=== PATIENT | female | born 1955 | race Caucasian/White ===

== ENCOUNTER 2020-03-31 07:53 | Outpatient (CLI) | payer MEDICARE, SELFPAY ==
[2020-03-31 08:26] LABS: Alanine Aminotransferase 33 U/L (4-35); Albumin Level 4.5 g/dL (3.5-5.1); Alkaline Phosphatase 84 U/L (38-126); Aspartate Amino Transferase 33 U/L (14-36); Bilirubin,Total 0.4 mg/dL (0.2-1.3); Blood Urea Nitrogen 19 mg/dL (7-17); Calcium 9.5 mg/dL (8.4-10.2); Carbon Dioxide 30 mmol/L (22-30); Chloride 103 mmol/L (98-107); Cholesterol 166 mg/dL (0-200); Estimated Glomerular Filt Rate > 60; Glucose 102 mg/dL (65-105); HDL Direct 51 mg/dL; Potassium 4.1 mmol/L (3.4-5.0); Sodium 138 mmol/L (137-145); Triglycerides 150 mg/dL (<150)
[2020-03-31 08:37] LABS: LDL Cholesterol Direct 88 mg/dL
== END 2020-03-31 07:54 | disposition home or self-care (01) ==
PROVIDERS: PCP Internal Medicine; Visit Provider Nurse Practitioner
DX: E78.49 Other hyperlipidemia (principal)
CPT/HCPCS: 36415; 80053; 80061

== ENCOUNTER 2020-11-21 07:46 | Outpatient (CLI) | payer MEDICARE, SELFPAY ==
--- NOTE | ~2020-11-21 | MM_ITS ---
EXAMINATION: MM screening [facility] BI w chema HISTORY: Screening TECHNIQUE: Craniocaudal and mediolateral oblique 3-D tomosynthesis images were obtained and synthetic 2-D images were generated. CAD analysis was submitted and interpreted. COMPARISON: 03/06/2018 BREAST PARENCHYMAL COMPOSITION: There are scattered areas of fibroglandular density. FINDINGS: There is no evidence of suspicious mass, calcification, or architectural distortion to sugg est malignancy in either breast. There has been no suspicious interval change. IMPRESSION: 1. No mammographic evidence of malignancy. 2. Recommend routine screening mammography in one year. BI-RADS Category 1: Negative Reviewed, dictated and finalized at location A. [facility] ATTENDANT
--- NOTE | ~2020-11-21 | DEXA_ITS ---
Bone Density Report Name: Skyla Freed Age: 65 Sex: Female Ethnicity: White Date of : 1955 Indication: osteopenia; parental hip fracture; postmenopausal Referring Provider: LUCILA JONES Study: Bone densitometry was performed. Exam Date: November 21, 2020 Accession number: [id number] Bone Density: Region BMD T-score Z-score Classification AP Spine (L1-L4) 0.900 -1.3 0.3 Osteopenia Femoral Neck (Left) 0.586 -2.4 -1.0 Osteopenia Total Hip (Left) 0.686 -2.1 -1.0 Osteopenia Total Hip Bilateral Avg 0.724 -1.8 -0.7 Osteopenia Femoral Neck (Right) 0.595 -2.3 -0.9 Osteopenia Total Hip (Right) 0.761 -1.5 -0.4 Osteopenia World Health Organization criteria for BMD impression classify patients as: Normal (T-score at or above -1.0), Osteopenia (T-score between -1.0 and -2.5), or Osteoporosis (T-score at or below -2.5). 10-year Fracture Risk(1): Major Osteoporotic Fracture 20% Hip Fracture 1.9% Reported Risk Factors: [place] (), Neck BMD=0.586, BMI=34.3, parental fracture (1) FRAX(R) Version 3.08. Fracture probability calculated for an untreated patient. Fracture probability may be lower if the patient has received treatment. Previous Exams: Region Exam Age BMD T-score BMD Change BMD Change Date g/cm2 vs Baseline vs Previous AP Spine(L1-L4) 11/21/2020 65 0.900 -1.3 -0.029(-3.1%)* -0.029(-3.1%)* 03/06/2018 62 0.929 -1.1 Total Hip(Left) 11/21/2020 65 0.686 -2.1 -0.007(-1.1%) -0.007(-1.1%) 03/06/2018 62 0.693 -2.0 Total Hip(Right) 11/21/2020 65 0.761 -1.5 0.017(2.3%) 0.017(2.3%) 03/06/2018 62 0.744 -1.6 *Denotes significance at 95% confidence level, LSC for AP Spine = 0.022 g/cm2, LSC for Total Hip = 0.027 g/cm2 Clinical Information Provided by Patient: Parent has had a hip fracture Patient maximum height was 64 Menopause Age: 41 No regular weight bearing exercise Drinks caffeinated beverages Onset of menses at age 11 Number of children 2 Impression: The patient has low bone mass, based on the Left Femoral Neck T-score. The patient has an estimated ten-year risk of hip fracture of 1.9% and an estimated ten-year risk of major fracture of 20%, based on the WHO FRAX algorithm. The patient has risk factors, including: parental hip fracture. The BMD for the AP Spine(L1-L4) decreased, changing by -3.1% since the last DXA exam. Discussion: BONE DENSITY IS LOW AT ONE OR MORE SKELETAL SITES. THE PATIEN
== END 2020-11-21 07:47 | disposition home or self-care (01) ==
LOC: ANHIMG 07:48
PROVIDERS: PCP Internal Medicine; Visit Provider Nurse Practitioner
DX: Z12.31 Encounter for screening mammogram for malignant neoplasm of breast (principal); Z78.0 Asymptomatic menopausal state; M85.88 Other specified disorders of bone density and structure, other site; M85.852 Other specified disorders of bone density and structure, left thigh; M85.851 Other specified disorders of bone density and structure, right thigh
CPT/HCPCS: 77063; 77067; 77080

== ENCOUNTER → 2020-12-20 03:15 | Outpatient (CLI) | payer MEDICARE, SELFPAY ==
[2020-12-20 20:35] LABS: SARS-CoV-2 RNA PCR Negative
== END ==
PROVIDERS: PCP Internal Medicine; Visit Provider Internal Medicine Gastroenterology
DX: Z01.812 Encounter for preprocedural laboratory examination (principal); Z20.822 Contact with and (suspected) exposure to COVID-19
CPT/HCPCS: C9803; U0003; U0005

== ENCOUNTER 2020-12-23 00:48 | Day surgery (SDC) | payer MEDICARE, SELFPAY ==
[2020-12-09 11:32] VITALS: BMI 34.0
--- NOTE | 2020-12-22 09:39 | WPDANESEPPF ---
Anes - Initial Pre Proc Eval Procedure: Operation Date: 12/23/20 08:00 Proposed Procedures p Screening Colonoscopy - Palomo Garcia MD Date/Time: 12/22/20 09:39 Surgeon: Palomo Garcia MD Pre Op Diagnosis: hx of Colon polyps Patient Data Age: 65 Gender: F Height: 1.63 m Weight: 90 kg Allergies Allergy/AdvReac Type Severity Reaction Status Date / Time No Known Allergies Allergy Verified 12/23/20 06:37 Home Medications Medication Instructions Recorded Confirmed Type rosuvastatin 20 mg tablet 20 mg PO DAILY #90 tablet 08/29/20 12/09/20 Rx aspirin 81 mg PO DAILY 12/09/20 12/09/20 History valsartan 320 0.5 tablet PO DAILY #45 tablet 12/21/20 12/23/20 Rx mg-hydrochlorothiazide 25 mg tablet Patient hx anesthesia problems: none Family hx anesthesia problems: none PMFSH Past Medical History Medical History (Updated 12/22/20 @ 09:40 by Jorge Langley DO) Body mass index (bmi) 33.0-33.9, adult Cerebrovascular accident (CVA) with right hemiparesis Colonoscopy causing post-procedural bleeding Deficient knowledge of caesarean delivery Ear drainage right Essential (primary) hypertension Inclusion cyst Mixed hyperlipidemia Neck abrasion Nicotine dependence Sinusitis Weight gain Surgical History Surgical History (Updated 09/16/19 @ 16:21 by Janey Alberts CMA) Hx of colonoscopy with polypectomy Family History Family History Mother Depression Patient's mother is in good health Family history of alcoholism Father Patient's father is in good health Sibling Patient's brother is in good health Social History Social History Smoking packs per day: 2 Smoking cigarettes per day: 40.0 Years smoked: 25 Smoking pack-years: 50.00 Smoking status: Former smoker Tobacco type: cigarettes Second hand tobacco smoke exposure: No Alcohol intake: current Drinks per week: 5 Substance use: former Substance use type: does not use Living arrangements: with family Spiritual care concerns: No Anes - Eval Final PreProcedure Day of Procedure 12/22/20 09:39 Patient weight: obese Heart: regular rate and rhythm Lungs: clear to auscultation and normal air movement Airway: Mallampati scale class III Neurological: alert and oriented Last oral intake: >/= 8 hours ASA classification: III Emergent: no Anesthetic plan: proceed Anesthesia type and monitoring: general GIVS and standard monitoring Informed Consent: The patient's anesthetic plan and its attendant risks and benefits were discussed with the patient/family/POA. Questions were solicited and answers provided to the satisfaction of the patient/family/POA.
[2020-12-23 06:40] VITALS: BP 119/76; PULSE 92; RESP 18; TEMP 37.1; O2SAT 97
[2020-12-23] MEDS: LACTATED RINGERS 1,000 ML 150 ML IV CONT (06:43)
--- NOTE | 2020-12-23 08:01 | PM.HPGS ---
History of Present Illness History of Present Illness Consent: Risks, benefits, and alternatives have been discussed and questions answered. Patient agrees to proceed with procedure. Chief complaint: hx of Colon polyps Narrative: Skyla Vee is a 65 year old female with large polyps removed in 2019, here to reassess Review of Systems Constitutional: Constitutional: Denies headache(s) and Denies weakness Eyes: Eyes: Denies blurry vision ENT: Reports Normal hearing present, Denies headache(s) and Denies neck pain Cardiovascular: Cardiovascular: Denies chest pain and Denies dyspnea Respiratory: Respiratory: Denies dyspnea Gastrointestinal: Gastrointestinal: Reports no additional gastrointestinal complaints Genitourinary: Genitourinary: Denies dysuria Musculoskeletal: Musculoskeletal: Denies neck pain Integumentary/Breasts: Skin/Breast: Denies dry skin Neurologic: Reports Normal hearing present, Denies headache(s) and Denies weakness Psychiatric: Psychiatric: Denies anxiety Endocrine: Endocrine: Denies change in body appearance Hematologic/Lymphatic: Hematologic/Lymphatic: Denies easy bleeding Allergic/Immunologic: Allergic/Immunologic: Denies urticaria PMFSH Past Medical History Medical History (Updated 12/23/20 @ 08:02 by Palomo Garcia MD) Adenomatous colon polyp Body mass index (bmi) 33.0-33.9, adult Cerebrovascular accident (CVA) with right hemiparesis Colonoscopy causing post-procedural bleeding Deficient knowledge of caesarean delivery Ear drainage right Essential (primary) hypertension Inclusion cyst Mixed hyperlipidemia Neck abrasion Nicotine dependence Sinusitis Weight gain Surgical History Surgical History (Updated 09/16/19 @ 16:21 by Janey Alberts CMA) Hx of colonoscopy with polypectomy Family History Family History Mother Depression Patient's mother is in good health Family history of alcoholism Father Patient's father is in good health Sibling Patient's brother is in good health Social History Social History Smoking packs per day: 2 Smoking cigarettes per day: 40.0 Years smoked: 25 Smoking pack-years: 50.00 Smoking status: Former smoker Tobacco type: cigarettes Second hand tobacco smoke exposure: No Alcohol intake: current Drinks per week: 5 Substance use: former Substance use type: does not use Living arrangements: with family Spiritual care concerns: No Meds Home Medications and Allergies Home Medications Medication Instructions Recorded Confirmed Type rosuvastatin 20 mg tablet 20 mg PO DAILY #90 tablet 08/29/20 12/09/20 Rx aspirin 81 mg PO DAILY 12/09/20 12/09/20 History valsartan 320 0.5 tablet PO DAILY #45 tablet 12/21/20 12/23/20 Rx mg-hydrochlorothiazide 25 mg tablet Allergies Allergy/AdvReac Type Severity Reaction Status Date / Time No Known Allergies Allergy Verified 12/23/20 06:37 Vital Signs Vital Signs - 24 hr 12/23/20 06:40 Temperature 98.7 F Pulse Rate 92 Respiratory Rate 18 Blood Pressure 119/76 Pulse Oximetry 97 Exam Const: General: comfortable and no acute distress HENMT: General nose exam: Normal nares present Eyes: General: appearance normal, both eyes and all related structures Neck: Neck: no JVD Resp: Auscultation: clear to auscultation bilaterally Cardio: Rate: regular rate Rhythm: regular rhythm GI: Inspection: non-distended GI Palp: Yes Soft to palpation Skin: General skin exam: normal color Neuro: General: gait normal Speech: normal speech Extrem: General: normal to inspection Psych: Mental Status: mental status grossly normal Assessment and Plan Assessment and plan (1) Adenomatous colon polyp: Code(s): D12.6 - Benign neoplasm of colon, unspecified Status: Acute Assessment and Plan: proc
[2020-12-23 08:32] VITALS: BP 124/62; PULSE 70; RESP 26; O2SAT 98
[2020-12-23 08:42] VITALS: BP 116/66; PULSE 63; RESP 21; O2SAT 98
[2020-12-23 08:52] VITALS: BP 114/72; PULSE 60; RESP 20; O2SAT 98
== END 2020-12-23 08:55 | disposition home or self-care (01) ==
PROVIDERS: PCP Internal Medicine; Visit Provider Internal Medicine Gastroenterology
PROC: 0DJD8ZZ Inspection of Lower Intestinal Tract, Via Natural or Artificial Opening Endoscopic (ICD-10-PCS; CPT 45378; principal; 2020-12-23 08:00)
DX: Z12.11 Encounter for screening for malignant neoplasm of colon (principal); Z86.010 Personal history of colon polyps; K63.5 Polyp of colon; Z79.82 Long term (current) use of aspirin; I69.851 Hemiplegia and hemiparesis following other cerebrovascular disease affecting right dominant side; I10 Essential (primary) hypertension; E78.2 Mixed hyperlipidemia; E66.8 Other obesity; Z68.34 Body mass index [BMI] 34.0-34.9, adult; Z87.891 Personal history of nicotine dependence; K57.30 Diverticulosis of large intestine without perforation or abscess without bleeding
CPT/HCPCS: 45381; 45385; 88305; C9803; J2001; J2704; J7120; U0003; U0005

== ENCOUNTER 2021-04-12 11:08 | Outpatient (CLI) | payer MEDICARE, SELFPAY ==
[2021-04-12 12:18] LABS: Alanine Aminotransferase 30 U/L (4-35); Albumin Level 4.7 g/dL (3.5-5.1); Alkaline Phosphatase 75 U/L (38-126); Anion Gap 9 mmol/L (8-16); Aspartate Amino Transferase 32 U/L (14-36); Bilirubin,Total 0.3 mg/dL (0.2-1.3); Blood Urea Nitrogen 18 mg/dL (7-17); Calcium 10.2 mg/dL (8.4-10.2); Carbon Dioxide 28 mmol/L (22-30); Chloride 103 mmol/L (98-107); Cholesterol 171 mg/dL (0-200); Estimated Glomerular Filt Rate > 60; Glucose 100 mg/dL (65-105); HDL Direct 51 mg/dL; Sodium 140 mmol/L (137-145); Triglycerides 163 mg/dL (<150)
[2021-04-12 12:29] LABS: LDL Cholesterol Direct 75 mg/dL
== END 2021-04-12 11:09 | disposition home or self-care (01) ==
PROVIDERS: PCP Internal Medicine; Visit Provider Nurse Practitioner
DX: E78.2 Mixed hyperlipidemia (principal); Z68.33 Body mass index [BMI] 33.0-33.9, adult
CPT/HCPCS: 36415; 80053; 80061; 84443

== ENCOUNTER 2022-01-08 08:55 | Outpatient (CLI) | payer MEDICARE, SELFPAY ==
--- NOTE | ~2022-01-08 | CT_ITS ---
EXAMINATION: CT lung screening DATE: 01/08/2022 09:34 INDICATION: Personal history of tobacco dependence TECHNIQUE: Computed tomography (CT) of the chest was performed without intravenous contrast. The dose -length product was 135.63 mGy-cm. Automated exposure control and iterative reconstruction technique were employed. COMPARISON: CT dated 01/21/2017 FINDINGS: No thoracic lymphadenopathy. There is atherosclerosis of the aorta and coronary arteries. N o significant pleural or pericardial effusion. Heart size normal. The upper abdomen is unremarkable. There is moderate emphysema. There is a 3 mm nodule of the minor fissure. Stable 3 mm right upper lob e nodule. Stable 3-4 mm left lower lobe nodule. No new pulmonary nodules or masses. Mild thoracic spo ndylosis. Partially visualized lower cervical fusion noted. IMPRESSION: 1. Lung-RADS category 2: Benign appearance or behavior. Continue annual screening with noncontrast lo w-dose chest CT in 12 months. Reviewed, dictated and finalized at location B. IMPRESSION: 1. Lung-RADS category 2: Benign appearance or behavior. Continue annual screeni ng with noncontrast low-dose chest CT in 12 months.
== END 2022-01-08 08:56 | disposition home or self-care (01) ==
PROVIDERS: PCP Internal Medicine; Visit Provider Internal Medicine
DX: Z87.891 Personal history of nicotine dependence (principal)
CPT/HCPCS: 71271

== ENCOUNTER 2022-01-31 00:40 | Day surgery (SDC) | payer MEDICARE, SELFPAY ==
[2022-01-24 14:21] VITALS: BMI 34.4
[2022-01-31 07:35] VITALS: BP 106/67; PULSE 97; RESP 18; TEMP 38.5; O2SAT 98; BMI 34.4
--- NOTE | 2022-01-31 07:58 | WPDANESEPPF ---
Anes - Initial Pre Proc Eval Procedure: Operation Date: 01/31/22 09:00 Proposed Procedures p Screening Colonoscopy - Jake Schmitt MD Date/Time: 01/31/22 07:58 Surgeon: Jake Schmitt MD Pre Op Diagnosis: hx of colon polyps Patient Data Age: 66 Gender: F Height: 1.63 m Weight: 91.2 kg Last Vital Signs Temp 38.5 C H 01/31/22 07:35 Pulse 97 01/31/22 07:35 Resp 18 01/31/22 07:35 BP 106/67 01/31/22 07:35 Pulse Ox 98 01/31/22 07:35 Allergies Allergy/AdvReac Type Severity Reaction Status Date / Time No Known Allergies Allergy Verified 01/31/22 07:43 Home Medications Medication Instructions Recorded Confirmed Type aspirin 81 mg PO DAILY 12/09/20 01/31/22 History rosuvastatin 20 mg tablet 20 mg PO DAILY #90 tablet 07/05/21 01/31/22 Rx valsartan 320 0.5 tablet PO DAILY #45 tablet 11/03/21 01/31/22 Rx mg-hydrochlorothiazide 25 mg tablet [id number]-[id number]-czjh-lutein 1 tablet PO DAILY 01/24/22 01/31/22 History [Centrum Silver Ultra Women's] Patient hx anesthesia problems: none Family hx anesthesia problems: none Results Review: All pre-operative results and documents have been reviewed as part of the pre-operative evaluation. [facility] Past Medical History Medical History Adenomatous colon polyp Body mass index (bmi) 33.0-33.9, adult Cerebrovascular accident (CVA) with right hemiparesis Colonoscopy causing post-procedural bleeding Deficient knowledge of caesarean delivery Ear drainage right Essential (primary) hypertension Hypertension Inclusion cyst Mixed hyperlipidemia Neck abrasion Nicotine dependence Sinusitis Weight gain Surgical History Surgical History Hx of colonoscopy with polypectomy Family History Family History Mother Depression Patient's mother is in good health Family history of alcoholism Father Patient's father is in good health Sibling Patient's brother is in good health Social History Social History Smoking packs per day: 1.5 Smoking cigarettes per day: 30.0 Years smoked: 25 Smoking pack-years: 37.50 Smoking status: Former smoker Tobacco type: cigarettes Second hand tobacco smoke exposure: No Smoking end date: 11/05/13 Alcohol intake: current Drinks per week: 2 Alcohol use details: WINE Substance use: never Substance use type: does not use Living arrangements: with family Spiritual care concerns: No Anes - Eval Final PreProcedure Day of Procedure 01/31/22 07:58 Patient weight: obese Heart: regular rate and rhythm Lungs: decreased breath sounds Airway: Mallampati scale class II Neurological: alert and oriented Last oral intake: >/= 8 hours ASA classification: III Emergent: no Anesthetic plan: proceed Anesthesia type and monitoring: general GIVS and standard monitoring Results Review: All pre-operative results and documents have been reviewed as part of the pre-operative evaluation. Informed Consent: The patient's anesthetic plan and its attendant risks and benefits were discussed with the patient/family/POA. Questions were solicited and answers provided to the satisfaction of the patient/family/POA.
[2022-01-31] MEDS: LACTATED RINGERS 1,000 ML 150 ML IV CONT (08:00)
--- NOTE | 2022-01-31 08:19 | PM.HPGS ---
History of Present Illness History of Present Illness Consent: Risks, benefits, and alternatives have been discussed and questions answered. Patient agrees to proceed with procedure. Chief complaint: hx of colon polyps Narrative: Skyla Vee is a 66 year old female With here for colon cancer screening. She has had polyps removed in the past. In fact she had a sessile polyp removed 3 years ago in the ascending colon. A repeat examination a year ago, she was found to have recurrence at the site of that prior polypectomy, adjacent to the tattoo. That polyp was removed piecemeal, is consequently she needs to return for follow-up at this time Review of Systems Review of Systems: All systems reviewed & are unremarkable except as noted in HPI and below PMFSH Past Medical History Medical History Adenomatous colon polyp Body mass index (bmi) 33.0-33.9, adult Cerebrovascular accident (CVA) with right hemiparesis Colonoscopy causing post-procedural bleeding Deficient knowledge of caesarean delivery Ear drainage right Essential (primary) hypertension Hypertension Inclusion cyst Mixed hyperlipidemia Neck abrasion Nicotine dependence Sinusitis Weight gain Surgical History Surgical History Hx of colonoscopy with polypectomy Family History Family History Mother Depression Patient's mother is in good health Family history of alcoholism Father Patient's father is in good health Sibling Patient's brother is in good health Social History Social History Smoking packs per day: 1.5 Smoking cigarettes per day: 30.0 Years smoked: 25 Smoking pack-years: 37.50 Smoking status: Former smoker Tobacco type: cigarettes Second hand tobacco smoke exposure: No Smoking end date: 11/05/13 Alcohol intake: current Drinks per week: 2 Alcohol use details: WINE Substance use: never Substance use type: does not use Living arrangements: with family Spiritual care concerns: No Meds Home Medications and Allergies Home Medications Medication Instructions Recorded Confirmed Type aspirin 81 mg PO DAILY 12/09/20 01/31/22 History rosuvastatin 20 mg tablet 20 mg PO DAILY #90 tablet 07/05/21 01/31/22 Rx valsartan 320 0.5 tablet PO DAILY #45 tablet 11/03/21 01/31/22 Rx mg-hydrochlorothiazide 25 mg tablet ubmumvqm-mthohtb-sbrk-lutein 1 tablet PO DAILY 01/24/22 01/31/22 History [Centrum Silver Ultra Women's] Allergies Allergy/AdvReac Type Severity Reaction Status Date / Time No Known Allergies Allergy Verified 01/31/22 07:43 Vital Signs Vital Signs - 24 hr 01/31/22 07:35 Temperature 38.5 C H Pulse Rate 97 Respiratory Rate 18 Blood Pressure 106/67 Pulse Oximetry 98 Exam Resp: Auscultation: clear to auscultation bilaterally Cardio: Rate: regular rate Rhythm: regular rhythm GI: GI Palp: Yes Soft to palpation and No Tenderness to palpation present (GI) Assessment and Plan Assessment and plan (1) Colon cancer screening: Code(s): Z12.11 - Encounter for screening for malignant neoplasm of colon Status: Acute Assessment and Plan: Colonoscopy with possible biopsy or polypectomy or cautery or injection of substances. (2) Adenomatous colon polyp: Code(s): D12.6 - Benign neoplasm of colon, unspecified Status: Acute
--- NOTE | 2022-01-31 08:33 | SUR.PREOP ---
PT'S TEMP IS 101.3 IN PRE-OP. ASYMPTOMATIC. PT STATES SHE FEELS FINE. DR. HOUSER AND DR. PENA AWARE.
[2022-01-31 09:11] VITALS: BP 117/77; PULSE 81; RESP 18; O2SAT 94
[2022-01-31 09:21] VITALS: BP 102/77; PULSE 74; RESP 18; O2SAT 93
[2022-01-31 09:31] VITALS: BP 125/70; PULSE 73; RESP 20; O2SAT 98
== END 2022-01-31 09:36 | disposition home or self-care (01) ==
PROVIDERS: PCP Internal Medicine; Visit Provider Internal Medicine Gastroenterology
PROC: 0DJD8ZZ Inspection of Lower Intestinal Tract, Via Natural or Artificial Opening Endoscopic (ICD-10-PCS; CPT 45378; principal; 2022-01-31 09:00)
DX: Z12.11 Encounter for screening for malignant neoplasm of colon (principal); K62.1 Rectal polyp; K57.30 Diverticulosis of large intestine without perforation or abscess without bleeding; I69.351 Hemiplegia and hemiparesis following cerebral infarction affecting right dominant side; I10 Essential (primary) hypertension; E78.2 Mixed hyperlipidemia; Z87.891 Personal history of nicotine dependence
CPT/HCPCS: 45380; 88305; J2704; J7120

== ENCOUNTER 2023-01-09 09:24 | Outpatient (CLI) | payer MEDICARE, OTHER, SELFPAY ==
[2023-01-09 10:54] LABS: Alanine Aminotransferase 38 U/L (6-35); Albumin Level 4.6 g/dL (3.5-5.1); Alkaline Phosphatase 86 U/L (38-126); Anion Gap 6 mmol/L (8-16); Aspartate Amino Transferase 36 U/L (14-36); Bilirubin,Total 0.5 mg/dL (0.2-1.3); Blood Urea Nitrogen 16 mg/dL (7-17); Calcium 9.3 mg/dL (8.4-10.2); Carbon Dioxide 28 mmol/L (22-30); Chloride 104 mmol/L (98-107); Cholesterol 141 mg/dL (0-200); Estimated Glomerular Filt Rate > 60; Glucose 95 mg/dL (65-110); HDL Direct 44 mg/dL; Potassium 3.9 mmol/L (3.4-5.0); Sodium 138 mmol/L (137-145); Triglycerides 100 mg/dL (<150)
[2023-01-09 11:05] LABS: LDL Cholesterol Direct 65 mg/dL
== END 2023-01-09 09:25 | disposition home or self-care (01) ==
LOC: ANHLAB 09:27
PROVIDERS: PCP Internal Medicine; Visit Provider Nurse Practitioner Family
DX: E78.2 Mixed hyperlipidemia (principal); R53.83 Other fatigue; I10 Essential (primary) hypertension
CPT/HCPCS: 36415; 80053; 80061; 84443

== ENCOUNTER 2023-01-10 11:05 | Outpatient (CLI) | payer MEDICARE, OTHER, SELFPAY ==
--- NOTE | ~2023-01-10 | CT_ITS ---
EXAMINATION: CT cervical spine wo con DATE: 01/10/2023 11:28 INDICATION: Neck pain and prior neck surgery TECHNIQUE: Computed tomography (CT) of the cervical spine was performed without intravenous contrast. Automated exposure control and iterative reconstruction technique were employed. The dose-length pro duct was 499.74 mGy-cm. COMPARISON: None FINDINGS: Straightening of the normal cervical lordosis. C5-C7 anterior spinal fusion with anterior plate and s crew fixation. There is solid osseous bridging across entire C5-C6 disc space and less advanced fusio n beginning at the anterior aspect of the C6-C7 disc space. Unfused vertebral body heights are normal . Moderate disc height loss at C4-C5 and mild disc height loss at C7-T1 through T2-T3. Cervical soft tissues are unremarkable. Moderate emphysema. The following disc levels are specifically discussed: C2-C3: There is no uncovertebral joint osteoarthritis. There is mild left and severe right facet join t osteoarthritis. There is no neural foraminal stenosis. There is no central canal stenosis. C3-C4: There is mild bilateral uncovertebral joint osteoarthritis. There is mild right and moderate l eft facet joint osteoarthritis. There is minimal left neural foraminal stenosis. There is no central canal stenosis. C4-C5: Small posterior disc osteophyte complex. There is severe bilateral uncovertebral joint osteoar thritis. There is mild right and moderate left facet joint osteoarthritis. There is mild bilateral ne ural foraminal stenosis. There is mild central canal stenosis. C5-C6: Small osteophytes at the posterior and posterolateral margins of the fused disc space. There i s mild right and moderate left facet joint osteoarthritis with developing fusion across the left face t joint. There is mild bilateral neural foraminal stenosis. There is mild central canal stenosis. C6-C7: Small osteophytes along the posterior and posterolateral margins of the fusing disc space. The re is mild bilateral facet joint osteoarthritis. There is mild bilateral neural foraminal stenosis. T here is no central canal stenosis. C7-T1: There is mild bilateral uncovertebral joint osteoarthritis. There is moderate right and severe left facet joint osteoarthritis. There is mild left neural foraminal stenosis. There is no central c anal stenosis. IMPRESSION: 1. Moderate cervical spondylosis with instrumented C5-C7 anterior spinal fusion. 2. Moderate emphysema. Reviewed, dictated and finalized at location L. IMPRESSION: 1. Moderate cervical spondylosis with instrumented C5-C7 anterior spinal fusion . 2. Moderate emphysema.
== END 2023-01-10 11:06 | disposition home or self-care (01) ==
PROVIDERS: PCP Internal Medicine; Visit Provider Internal Medicine
DX: M47.892 Other spondylosis, cervical region (principal); J43.9 Emphysema, unspecified
CPT/HCPCS: 72125

== ENCOUNTER 2023-03-09 09:30 | Outpatient (CLI) | payer MEDICARE, OTHER, SELFPAY ==
--- NOTE | ~2023-03-09 | DEXA_ITS ---
Bone Density Report Name: AMALIA MAURICIO Age: 67 Sex: Female Ethnicity: White Date of : 1955 Indication: osteopenia; parental hip fracture; hysterectomy; postmenopausal Referring Provider: KIERAN CAMACHO Study: Bone densitometry was performed. Exam Date: March 09, 2023 Accession number: [id number] Bone Density: Region BMD T-score Z-score Classification AP Spine(L1-L4) 0.917 -1.2 0.6 Osteopenia Femoral Neck (Left) 0.585 -2.4 -0.9 Osteopenia Total Hip (Left) 0.728 -1.8 -0.5 Osteopenia Femoral Neck (Right) 0.576 -2.5 -0.9 Osteoporosis Total Hip (Right) 0.743 -1.6 -0.4 Osteopenia Total Hip Mean 0.735 -1.7 -0.5 Osteopenia World Health Organization criteria for BMD impression classify patients as: Normal (T-score at or above -1.0), Osteopenia (T-score between -1.0 and -2.5), or Osteoporosis (T-score at or below -2.5). 10-year Fracture Risk: FRAX not reported because: Some T-score for Spine Total or Hip Total or Femoral Neck at or below -2.5 Previous Exams: Region Exam Age BMD T-score BMD Change BMD Change Date g/cm2 vs Baseline vs Previous AP Spine (L1-L4) 03/09/2023 67 0.917 -1.2 -0.012 (-1.3%) 0.017 (1.9%) 11/21/2020 65 0.900 -1.3 -0.029 (-3.1%) -0.029 (-3.1%) 03/06/2018 62 0.929 -1.1 Total Hip(Left) 03/09/2023 67 0.728 -1.8 0.035 (5.0%)* 0.042 (6.1%)* 11/21/2020 65 0.686 -2.1 -0.007 (-1.1%) -0.007 (-1.1%) 03/06/2018 62 0.693 -2.0 Total Hip(Right) 03/09/2023 67 0.743 -1.6 -0.001 (-0.2%) -0.018 (-2.4%) 11/21/2020 65 0.761 -1.5 0.017 (2.3%) 0.017 (2.3%) 03/06/2018 62 0.744 -1.6 *Denotes significance at 95% confidence level, LSC for AP Spine = 0.022 g/cm2, LSC for Total Hip = 0.027 g/cm2 Clinical Information Provided by Patient: Parent has had a hip fracture Has the following medical conditions: Hysterectomy Patient maximum height was 64 Menopause Age: 45 No regular weight bearing exercise Drinks caffeinated beverages Onset of menses at age 11 Number of children 2 Impression: The patient has osteoporosis, based on the Right Femoral Neck T-score. The patient has risk factors, including: parental hip fracture. No significant bone loss was observed. Discussion: INCREASED RISK OF FRACTURE. BONE DENSITY IS UNDESIRABLY LOW AT ONE OR MORE SKELETAL SITES, CONSISTENT WITH POSTMENOPAUSAL OSTEOPOROSIS. This patient's lowest T-score meets the World Health Organization's (WHO) crite
--- NOTE | ~2023-03-09 | MM_ITS ---
EXAMINATION: MM screening [facility] BI w chema HISTORY: Screening mammogram TECHNIQUE: Craniocaudal and mediolateral oblique 3-D tomosynthesis images were obtained and synthetic 2-D images were generated. CAD analysis was submitted and interpreted. COMPARISON: 11/21/2020, 03/06/2018 BREAST PARENCHYMAL COMPOSITION: There are scattered areas of fibroglandular density. FINDINGS: No suspicious mass, calcification, or architectural distortion are identified in either abena ast to suggest malignancy. There has been no suspicious interval change. IMPRESSION: 1. No mammographic evidence of malignancy. 2. Recommend routine screening mammography in one year. BI-RADS Category 1: Negative Reviewed, dictated and finalized at location A.
== END 2023-03-09 09:31 | disposition home or self-care (01) ==
LOC: ANHIMG 09:32
PROVIDERS: PCP Internal Medicine; Visit Provider Nurse Practitioner Family
DX: Z12.31 Encounter for screening mammogram for malignant neoplasm of breast (principal); Z78.0 Asymptomatic menopausal state; M85.88 Other specified disorders of bone density and structure, other site; M85.852 Other specified disorders of bone density and structure, left thigh; M85.851 Other specified disorders of bone density and structure, right thigh; M81.0 Age-related osteoporosis without current pathological fracture
CPT/HCPCS: 77063; 77067; 77080

== ENCOUNTER 2024-03-18 11:30 | Outpatient (CLI) | payer MEDICARE, OTHER, SELFPAY ==
[2024-03-18 11:59] LABS: Basophils Absolute Auto 0.1 K/mm3 (0.0-0.1); Basophils Percent Auto 0.9 % (0.2-1.2); Eosinophils Absolute Auto 0.1 K/mm3 (0-0.3); Eosinophils Percent Auto 1.4 % (0-4.4); Hematocrit 40.1 % (37.0-47.0); Hemoglobin 13.3 g/dL (12.0-15.0); Immature Granulocyte Absolute 0.02 K/mm3 (0.00-0.031); Immature Granulocyte Percent A 0.3 % (0-0.5); Lymphocytes Absolute Auto 2.55 K/mm3 (0.9-3.2); Mean Corpuscular HGB Conc 33.2 g/dl (32-36); Mean Corpuscular Hemoglobin 31.3 pg (26-34); Mean Corpuscular Volume 94.4 fl (80-100); Mean Platelet Volume 9.9 fl (7.4-10.4); Monocytes Absolute Auto 0.6 K/mm3 (0.1-0.6); Monocytes Percent Auto 8.1 % (2.6-8.5); Neutrophils Absolute Auto 3.6 K/mm3 (1.3-6.7); Neutrophils Percent Auto 52.3 % (45.5-73.1); Platelet Count Result 275 k/mm3 (150-375); Red Blood Count 4.25 M/mm3 (4.2-5.4); Red Cell Distribution Width 13.2 % (11.5-14.5); White Blood Count 6.9 K/mm3 (4.5-10.0)
[2024-03-18 12:15] LABS: Alanine Aminotransferase 35 U/L (6-35); Albumin Level 4.7 g/dL (3.5-5.1); Alkaline Phosphatase 85 U/L (38-126); Anion Gap 8 mmol/L (4-12); Aspartate Amino Transferase 31 U/L (14-36); Bilirubin,Total 0.5 mg/dL (0.2-1.3); Blood Urea Nitrogen 19 mg/dL (7-17); Calcium 9.4 mg/dL (8.4-10.2); Carbon Dioxide 27 mmol/L (22-30); Chloride 105 mmol/L (98-107); Cholesterol 175 mg/dL (0-200); Estimated Glomerular Filt Rate > 60; Glucose 97 mg/dL (65-110); HDL Direct 64 mg/dL; Potassium 4.1 mmol/L (3.4-5.0); Sodium 140 mmol/L (137-145); Triglycerides 170 mg/dL (<150)
[2024-03-18 12:26] LABS: LDL Cholesterol Direct 87 mg/dL
[2024-03-18 12:27] LABS: Hemoglobin A1C 5.4 % (<5.7)
[2024-03-18 12:37] LABS: Free T4 Free Thyroxine 0.85 ng/mL (0.78-2.19); Vitamin D 25 Hydroxy 42.1 ng/mL
[2024-03-18 12:39] LABS: NT Pro B Type Natriuretic Pept 52 pg/mL (19.9-100)
[2024-03-20 08:49] LABS: Thyroid Peroxidase Antibodies <1 IU/mL (<9)
== END 2024-03-18 11:31 | disposition home or self-care (01) ==
PROVIDERS: Nurse Practitioner Family; PCP Nurse Practitioner Family; Visit Provider Nurse Practitioner Family
DX: E78.2 Mixed hyperlipidemia (principal); I10 Essential (primary) hypertension; M54.2 Cervicalgia; M81.0 Age-related osteoporosis without current pathological fracture; Z00.00 Encounter for general adult medical examination without abnormal findings; Z72.0 Tobacco use; Z68.33 Body mass index [BMI] 33.0-33.9, adult; R53.83 Other fatigue; Z79.899 Other long term (current) drug therapy; I48.91 Unspecified atrial fibrillation; Z13.29 Encounter for screening for other suspected endocrine disorder
CPT/HCPCS: 36415; 80053; 80061; 82306; 83036; 83880; 84439; 84443; 85025; 86376

== ENCOUNTER 2025-05-04 09:31 | Outpatient (CLI) | payer MEDICARE, OTHER, SELFPAY ==
--- OUTSIDE RECORDS SUMMARY | 2025-05-04 09:35 | XMS_ITS | Encounter Summary ---
Author Organization [facility] Address [address] [place] [address] Care Team Providers Care Routeman Name Role Phone Unavailable Primary Care Provider Unavailabl e Encounter Details Date Type Department Care Team (Late st Contact Info) Description 05/05/2020 Lab Requisition [facility] DermPath Lab [address] [place] [address] Kalpana Mancera DO [address] [facility] [address] [place] [address] Social History Tobacco Use Types Packs/Day Years Used Date Smoking Tobacco: Never Assessed Comments Unknown Sex and Gender Information Value Date Recorded Sex Assigned at Not on file 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 Gender Identity Not on file Sexual Orientation Not on file documented as of this encounter Plan of Treatment Not on file documented as of this encounter Procedures Procedure Name Priority Date/Time Associated Diagnosis Comments DERMATOPATHOLOGY Routine 05/04/2020 12:0 0 AM CDT documented in this encounter Results * DERMATOPATHOLOGY (05/04/2020 12:00 AM CDT) Case Report Dermatopathology Report Case: [id number] Authorizing Provider: Kalpana Mancera DO Collected: 05/04/2020 12:00 AM Ordering Location: [facility] Derm[facility] Lab Received: 05/05/2020 11:08 AM Pathologist: Irene Lao MD Specimens: A) - Skin, left ant LE B) - Skin, right post thigh 0 7:54 PM CDT DERMATOPATHOLOGY LABORATORY Final Diagnosis Specimen A. SKIN, left ant LE: ACANTHOSIS AND HYPERKERATOSIS (L98.8) STASIS DERMATITIS (L30.8) (see microscopic description and comment) Specimen B. SKIN, right post thigh: SEBORRHEIC KERATOSIS, MACULAR (L82.1) (see microscopic description and comment) 0 7:54 PM T DERMATOPATHOLOGY LABORATORY at 1954 CDT Clinical History A: DF R/O atypia. B: Angioma R/O atypia. 0 7:54 PM T DERMATOPATHOLOGY LABORATORY Gross Description Specimen A: Received is one formalin filled container labeled with the patient's name and designated left ant LE. The specimen consists of a shave measuring [id number]. Jar 0. Specimen B: Received is one formalin filled container labeled with the patient's name and designated right post thigh. The specimen consists of a shave measuring [id number]. Jar 0. 0 7:54 PM T DERMATOPATHOLOGY LABORATORY Microscopic Description Specimen A. SKIN, left ant LE: Sections show a somewhat superficial biopsy with acanthosis and hyperkeratosis. The dermis shows a sparse, perivascular lymphocytic infiltrate surrounding dilated, thick-walled vessels, which are increased in number. Additional deeper sections were obtained and reviewed. COMMENT: The histological findings of acanthosis and hyperkeratosis can be seen in a superficial biopsy of a dermatofibroma. Specimen B. SKIN, right post thigh: Sections show a relatively broad, flat proliferation of small keratinocytes. The surface is gently papillated, and there is orthokeratosis, mild acanthosis, and increased basilar pigmentation. Additional deeper sections were obtained and reviewed. COMMENT: The differential diagnosis includes a macular seborrheic keratosis and a lentigo. An underlying process cannot be entirely excluded. Clinical correlation is recommended. 0 7:54 PM T DERMATOPATHOLOGY LABORATORY Disclaimer An external and internal positive and negative controls are appropriate for the histochemical, immunohistochemical and immunofluorescence stain(s) in this case (if any), except where stated explicitly. The performance characteristics of the stain(s) cited in this report were developed and its performance characteristic determined by the Dermatopathology Laboratory at [facility], directed by Dr. Sam Pablo. These tests need not be, and therefore are not, approved by the [place] Food and Drug Administration. The tests are used for clinical purposes. Billing Codes Specimen Charges Stain Charges 68142 41668 1 1 0 7:54 PM CDT DERMATOPATHOLOGY LABORATORY Embedded Images 0 7:54 PM CDT DERMATOPATHOLOGY LABORATORY Pathology/Cytology TISSUE SPECIMEN FROM SKIN / Unknown 05/04/2020 05/05/2020 11:08 AM CDT Miscellaneous samples (specimen) TISSUE SPECIMEN FROM SKIN / Unknown 05/04/2020 05/05/2020 11:08 AM CDT us Kalpana Mancera DO LAB - PATHOLOGY/CYTOLOGY ORDERABLES Final Result DERMATOPATHOLOGY LABORATORY [facility] - Department of Dermatology [employer]/[address] [phone] documented in this encounter Visit Diagnoses Not on filedocumented in this encounter
--- OUTSIDE RECORDS SUMMARY | 2025-05-04 09:35 | XMS_ITS | Clinical Summary ---
Author Organization [facility] Address [address] [place] [address] Care Team Providers Care Products Mechanical Design Engineer Name Role Phone Unavailable Primary Care Provider Unavailabl e Source Comments [facility],non-owned Affiliates and Associated Physician Practices is amultiple site organization consisting of ambulatory clinics and hospital sitesin [place] and [place]. This disclosure is being madepursuant to the Care Everywhere program and may not contain all information available regarding this patient. 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 Gender Identity Not on file Sexual Orientation Not on file Plan of Treatment Health Maintenance Due Date Last Done Comments BONE DENSITY TESTING 1957 COLOGUARD (AGES 45-75) - COL ON CA SCREENING 1957 COLON MONITORING 1957 COLONOSCOPY - COLON CA SCREENING 1957 CT COLONOGRAPHY - COLON CA SCREENING 1957 Colorectal Cancer Screening 1957 FIT - COLON CA SCREENING 1957 FLEX SIG - COLON CA SCREENING 1957 LIPID TESTING 1957 MAMMOGRAM 1957 HEPATITIS C SCREENING 10/24/1975 DTAP/TDAP/TD VACCINES (1 - Tdap) 1976 PNEUMOCOCCAL VACCINE 50+ (1 of 1 - PCV) 2007 ZOSTER VACCINE (1 of 2) 2007 COVID-19 VACCINE ( - 2023-2 5 season) 2024 DEPRESSION SCREENING 2024 INFLUENZA VACCINE (Season Ended) 2025 Respiratory Syncytial Virus (RSV) Vaccine Pt: or over 60 yrs (1 - 1-dose 75+ series) 2032 HEPATITIS B VACCINE Aged Out No longe r eligible based on patient's age to complete this topic HIB VACCINE Aged Out No longer eligi ble based on patient's age to complete this topic HPV VACCINE Aged Out No longer eligi ble based on patient's age to complete this topic MENINGOCOCCAL (Group B) VACC INE SHARED DECISION-MAKING Aged Out No longer eligibl e based on patient's age to complete this topic MENINGOCOCCAL GROUPS A/C/Y/W VACCINE Aged Out No longer eligible b ased on patient's age to complete this topic Insurance [place] [id number]
[2025-05-04 10:15] LABS: Hematocrit 37.8 % (37.0-47.0); Hemoglobin 12.6 g/dL (12.0-15.0); Immature Granulocyte Percent A 0.3 % (0-0.5); Lymphocytes Absolute Auto 2.00 K/mm3 (0.9-3.2); Mean Corpuscular HGB Conc 33.3 g/dl (32-36); Mean Corpuscular Hemoglobin 31.0 pg (26-34); Mean Corpuscular Volume 92.9 fl (80-100); Nucleated Red Blood Cells Absolute Auto 0.000 K/mm3 (0.0-0.012); Nucleated Red Blood Cells Perc 0.0 % (0.0-0.2); Platelet Count Result 257 k/mm3 (150-375); Red Blood Count 4.07 M/mm3 (4.2-5.4); White Blood Count 5.9 K/mm3 (4.5-10.0)
[2025-05-04 10:27] LABS: Alanine Aminotransferase 25 U/L (6-35); Albumin Level 4.3 g/dL (3.5-5.1); Alkaline Phosphatase 64 U/L (38-126); Anion Gap 6 mmol/L (4-12); Aspartate Amino Transferase 34 U/L (14-36); Bilirubin,Total 0.3 mg/dL (0.2-1.3); Blood Urea Nitrogen 15 mg/dL (7-17); Calcium 9.8 mg/dL (8.4-10.2); Carbon Dioxide 28 mmol/L (22-30); Chloride 105 mmol/L (98-107); Cholesterol 174 mg/dL (0-200); Estimated Glomerular Filt Rate > 60; Glucose 95 mg/dL (65-110); HDL Direct 54 mg/dL; Potassium 4.4 mmol/L (3.4-5.0); Sodium 139 mmol/L (137-145); Total Protein 7.7 g/dL (6.3-8.2); Triglycerides 128 mg/dL (<150)
[2025-05-05 15:09] LABS: Calcium, Ionized 5.3 mg/dL (4.5-5.6)
== END 2025-05-04 09:32 | disposition home or self-care (01) ==
PROVIDERS: PCP Internal Medicine; Visit Provider Internal Medicine
DX: E78.2 Mixed hyperlipidemia (principal); I10 Essential (primary) hypertension; Z68.33 Body mass index [BMI] 33.0-33.9, adult; M81.0 Age-related osteoporosis without current pathological fracture; Z79.899 Other long term (current) drug therapy
CPT/HCPCS: 36415; 80053; 80061; 82306; 85025